=== PATIENT | female | born 1945 | race Caucasian/White ===

== ENCOUNTER 2017-09-10 12:41 | Emergency (ER) | payer MEDICARE, MEDICAID ==
[~2017-09-10] VITALS: Ht 147.3 cm; Wt 55.0 kg
[~2017-09-10 12:41] MED LIST: ACET-3068 PO; ATOR20TA PO; CLA10T PO; CYCL-394 PO; DOCU-148 PO; GABA-338 PO; IBUP-1984 PO; METF500T PO; OMEP-84 PO; ONDA4TAB6 PO; VALS160T2 PO
[2017-09-10 12:54] VITALS: BP 158/85
[2017-09-10] MEDS ORDERED: ketorolac trometh inj. 60 MG/2 ML VIAL IM STA (14:12)
[2017-09-10] MEDS ORDERED: CYCL-1 PO (14:15)
[2017-09-10] MEDS ORDERED: CYCL-394 PO (14:15)
[2017-09-10] MEDS ORDERED: IBUP-1984 PO (14:15)
== END 2017-09-10 14:40 | disposition home or self-care (01) ==
LOC: ER 12:41
DX: M54.5 Low back pain (principal); M25.561 Pain in right knee; G89.29 Other chronic pain; I10 Essential (primary) hypertension; E11.9 Type 2 diabetes mellitus without complications; Z79.84 Long term (current) use of oral hypoglycemic drugs; Z79.899 Other long term (current) drug therapy
CPT/HCPCS: 96372; 99284; J1885

== ENCOUNTER 2019-03-17 17:55 | Emergency (ER) | payer MEDICARE, MEDICAID ==
[~2019-03-17] VITALS: Ht 154.9 cm; Wt 50.0 kg
[~2019-03-17 17:55] MED LIST changes: +CYCL-1 PO
[2019-03-17 19:48] LABS: BASOPHILS % (AUTO) 0.4 % (0-1); EOSINOPHILS # (AUTO) 0.3 X10'3 (0-0.9); EOSINOPHILS % (AUTO) 4.7 % (0-6); HEMATOCRIT 40.5 % (35.0-45.0); HEMOGLOBIN 13.5 g/dl (12.0-16.0); LYMPHOCYTES % (AUTO) 31.9 % (21-51); MEAN CORPUSCULAR HGB CONC 33.3 g/dL (33.0-36.5); MEAN CORPUSCULAR VOLUME 93.2 FL (78-98); MEAN PLATELET VOLUME 7.6 FL (7.4-10.4); MONOCYTES # (AUTO) 0.7 X10'3 (0-0.9); MONOCYTES % (AUTO) 11.7 % (2-12); NEUTROPHILS # (AUTO) 3.3 X10'3 (1.8-7.7); NEUTROPHILS % (AUTO) 51.3 % (42-75); PLATELET COUNT 204 X10'3 (140-440); RED BLOOD COUNT 4.35 X10'6 (4.20-5.60); RED CELL DISTRIBUTION WIDTH 13.5 % (11.5-14.5); WHITE BLOOD COUNT 6.4 X10'3 (4.5-11.0)
[2019-03-17 20:01] LABS: ALANINE AMINOTRANSFERASE 24 U/L (12-78); ALBUMIN 3.6 G/DL (3.4-5.0); ALBUMIN/GLOBULIN RATIO 0.9 (1.1-1.5); ALKALINE PHOSPHATASE 71 IU/L (46-116); ANION GAP 6 (8-16); ASPARTATE AMINO TRANSFERASE 18 U/L (10-37); BILIRUBIN,TOTAL 0.6 MG/DL (0.1-1.0); BLOOD UREA NITROGEN 14 MG/DL (7-18); BUN/CREATININE RATIO 15.1 (6.6-38.0); CALCIUM 8.7 MG/DL (8.5-10.1); CHLORIDE 105 MMOL/L (99-107); CREATININE 0.93 MG/DL (0.40-0.90); GLUCOSE 113 MG/DL (70-104); POTASSIUM 3.8 MMOL/L (3.5-5.1); SODIUM 141 MMOL/L (135-145); TOTAL CARBON DIOXIDE 30.1 MMOL/L (24-32); TOTAL PROTEIN 7.5 G/DL (6.4-8.2); eGFR 59 ML/MIN
[2019-03-17 20:07] LABS: MAGNESIUM 1.9 MG/DL (1.5-2.4)
[2019-03-17 21:06] VITALS: BP 137/67
== END 2019-03-17 21:09 | disposition home or self-care (01) ==
LOC: ER 17:57
DX: R42 Dizziness and giddiness (principal); M25.511 Pain in right shoulder; R51 Headache; R20.0 Anesthesia of skin; I10 Essential (primary) hypertension; E11.9 Type 2 diabetes mellitus without complications; G89.29 Other chronic pain; Z98.890 Other specified postprocedural states; Z79.899 Other long term (current) drug therapy
CPT/HCPCS: 36415; 71046; 80053; 82948; 83735; 83880; 84484; 85025; 93005; 99284

== ENCOUNTER 2019-05-03 07:57 | Emergency (ER) | payer MEDICARE, MEDICAID ==
[~2019-05-03] VITALS: Ht 154.9 cm; Wt 60.0 kg
--- NOTE | 2019-05-03 08:23 | NUR ---
tamika ARIAS at bedside.
[2019-05-03] MEDS ORDERED: meclizine 12.5mg tablet PO ONE (08:40)
[2019-05-03] MEDS ORDERED: DICL100G15 TOP (09:31)
[2019-05-03] MEDS ORDERED: MECL-111 PO (09:48)
[2019-05-03 09:53] VITALS: BP 114/59
== END 2019-05-03 09:54 | disposition home or self-care (01) ==
LOC: ER 07:58
DX: R42 Dizziness and giddiness (principal); M25.511 Pain in right shoulder; R51 Headache; M79.604 Pain in right leg; I10 Essential (primary) hypertension; E11.9 Type 2 diabetes mellitus without complications; G89.29 Other chronic pain; Z98.890 Other specified postprocedural states; Z79.899 Other long term (current) drug therapy
CPT/HCPCS: 99283; J8597

== ENCOUNTER 2019-10-01 21:43 | Emergency (ER) | payer MEDICARE, MEDICAID ==
[~2019-10-01] VITALS: Ht 154.9 cm; Wt 59.1 kg
[~2019-10-01 21:43] MED LIST changes: +DICL100G15 TOP; +MECL-159 PO
[2019-10-01 21:45] VITALS: BP 168/80
[2019-10-01] MEDS ORDERED: CYCL-1 PO (22:14)
== END 2019-10-01 22:21 | disposition home or self-care (01) ==
LOC: ER 21:43
DX: M54.2 Cervicalgia (principal); M79.601 Pain in right arm; R20.0 Anesthesia of skin; I10 Essential (primary) hypertension; E11.9 Type 2 diabetes mellitus without complications; G89.29 Other chronic pain; Z98.890 Other specified postprocedural states; Z79.899 Other long term (current) drug therapy
CPT/HCPCS: 72040; 99283

== ENCOUNTER 2019-11-02 08:41 | Emergency (ER) | payer MEDICARE, MEDICAID ==
[~2019-11-02] VITALS: Ht 157.5 cm; Wt 52.3 kg
[2019-11-02] MEDS ORDERED: ondansetron/PF 4mg/2ml inj IV ONE (10:40)
[2019-11-02] MEDS ORDERED: normal saline 1000ML IV soln IVB ONE (10:40)
[2019-11-02] MEDS ORDERED: diazepam inj 5 MG/ML inj. IV ONE (10:40)
[2019-11-02] MEDS ORDERED: meclizine 12.5mg tablet PO ONE (10:40)
[2019-11-02 11:17] LABS: BASOPHILS % (AUTO) 0.2 % (0-1); EOSINOPHILS # (AUTO) 0.1 X10'3 (0-0.9); EOSINOPHILS % (AUTO) 0.9 % (0-6); HEMATOCRIT 43.5 % (35.0-45.0); HEMOGLOBIN 14.5 g/dl (12.0-16.0); LYMPHOCYTES # (AUTO) 1.2 X10'3 (1.1-4.8); LYMPHOCYTES % (AUTO) 18.3 % (21-51); MEAN CORPUSCULAR HEMOGLOBIN 30.8 PG (27.0-31.0); MEAN CORPUSCULAR HGB CONC 33.4 g/dL (33.0-36.5); MEAN CORPUSCULAR VOLUME 92.1 FL (78-98); MEAN PLATELET VOLUME 7.6 FL (7.4-10.4); MONOCYTES # (AUTO) 0.5 X10'3 (0-0.9); MONOCYTES % (AUTO) 7.5 % (2-12); NEUTROPHILS # (AUTO) 4.6 X10'3 (1.8-7.7); NEUTROPHILS % (AUTO) 73.1 % (42-75); PLATELET COUNT 200 X10'3 (140-440); RED BLOOD COUNT 4.72 X10'6 (4.20-5.60); RED CELL DISTRIBUTION WIDTH 13.5 % (11.5-14.5); WHITE BLOOD COUNT 6.3 X10'3 (4.5-11.0)
[2019-11-02 11:27] LABS: ALANINE AMINOTRANSFERASE 17 U/L (12-78); ALBUMIN 3.8 G/DL (3.4-5.0); ALKALINE PHOSPHATASE 73 IU/L (46-116); ANION GAP 7 (8-16); ASPARTATE AMINO TRANSFERASE 15 U/L (10-37); BILIRUBIN,TOTAL 0.6 MG/DL (0.1-1.0); BLOOD UREA NITROGEN 11 MG/DL (7-18); BUN/CREATININE RATIO 12.5 (6.6-38.0); CALCIUM 9.1 MG/DL (8.5-10.1); CHLORIDE 105 MMOL/L (99-107); CREATININE 0.88 MG/DL (0.40-0.90); GLUCOSE 143 MG/DL (70-104); POTASSIUM 3.9 MMOL/L (3.5-5.1); SODIUM 141 MMOL/L (135-145); TOTAL CARBON DIOXIDE 28.8 MMOL/L (24-32); TOTAL PROTEIN 7.8 G/DL (6.4-8.2); eGFR 63 ML/MIN
[2019-11-02] MEDS ORDERED: VAL5T PO (12:16)
[2019-11-02] MEDS ORDERED: MECL-159 PO (12:16)
[2019-11-02] MEDS ORDERED: ONDA4TAB6 PO (12:16)
[2019-11-02 12:28] VITALS: BP 155/75
== END 2019-11-02 12:25 | disposition home or self-care (01) ==
LOC: ER 08:41
DX: H81.10 Benign paroxysmal vertigo, unspecified ear (principal); R11.10 Vomiting, unspecified; I10 Essential (primary) hypertension; E11.9 Type 2 diabetes mellitus without complications; G89.29 Other chronic pain; Z98.890 Other specified postprocedural states; Z79.899 Other long term (current) drug therapy
CPT/HCPCS: 36415; 80053; 85025; 96374; 96375; 99284; J2405; J3360; J7030; J8597

== ENCOUNTER 2020-10-21 15:54 | Emergency (ER) | payer MEDICARE, MEDICAID | END 2020-10-21 19:03 | disposition left against medical advice (07) | LOC: ER 15:54 | DX: M54.9 Dorsalgia, unspecified (principal); Z53.21 Procedure and treatment not carried out due to patient leaving prior to being seen by health care provider ==

== ENCOUNTER 2022-08-26 04:32 | Emergency (ER) | payer MEDICARE, MEDICAID ==
[~2022-08-26] VITALS: Ht 154.9 cm; Wt 68.2 kg
[2022-08-26 05:29] LABS: PLATELET COUNT 208 X10'3 (140-440)
[2022-08-26 05:31] LABS: BASOPHILS % (AUTO) 0.4 % (0-1); EOSINOPHILS # (AUTO) 0.4 X10'3 (0-0.9); EOSINOPHILS % (AUTO) 4.1 % (0-6); HEMATOCRIT 40.6 % (35.0-45.0); HEMOGLOBIN 13.6 g/dl (12.0-16.0); LYMPHOCYTES # (AUTO) 2.5 X10'3 (1.1-4.8); LYMPHOCYTES % (AUTO) 25.7 % (21-51); MEAN CORPUSCULAR HEMOGLOBIN 30.2 PG (27.0-31.0); MEAN CORPUSCULAR HGB CONC 33.4 g/dL (33.0-36.5); MEAN CORPUSCULAR VOLUME 90.4 FL (78-98); MEAN PLATELET VOLUME 7.7 FL (7.4-10.4); MONOCYTES # (AUTO) 0.9 X10'3 (0-0.9); MONOCYTES % (AUTO) 9.6 % (2-12); NEUTROPHILS # (AUTO) 5.8 X10'3 (1.8-7.7); NEUTROPHILS % (AUTO) 60.2 % (42-75); RED BLOOD COUNT 4.49 X10'6 (4.20-5.60); WHITE BLOOD COUNT 9.6 X10'3 (4.5-11.0)
[2022-08-26 05:35] LABS: ALANINE AMINOTRANSFERASE 12 U/L (12-78); ALBUMIN 3.6 G/DL (3.4-5.0); ALBUMIN/GLOBULIN RATIO 0.8 (1.1-1.5); ALKALINE PHOSPHATASE 73 IU/L (46-116); ANION GAP 8 (8-16); ASPARTATE AMINO TRANSFERASE 16 U/L (10-37); BILIRUBIN,TOTAL 0.5 MG/DL (0.1-1.0); BLOOD UREA NITROGEN 12 MG/DL (7-18); CALCIUM 8.8 MG/DL (8.5-10.1); CHLORIDE 104 MMOL/L (99-107); CREATININE 0.75 MG/DL (0.40-0.90); GLUCOSE 148 MG/DL (70-104); POTASSIUM 3.9 MMOL/L (3.5-5.1); SODIUM 141 MMOL/L (135-145); TOTAL CARBON DIOXIDE 28.9 MMOL/L (24-32); eGFR 75 ML/MIN
[2022-08-26] MEDS ORDERED: acetaminophen 325mg tablet PO ONE (05:45)
[2022-08-26 05:57] VITALS: BP 152/64
== END 2022-08-26 06:03 | disposition home or self-care (01) ==
LOC: ER 04:33
DX: R07.89 Other chest pain (principal)
CPT/HCPCS: 36415; 71045; 80053; 83880; 84484; 85025; 93005; 99285

== ENCOUNTER 2023-06-01 11:41 | Outpatient (CLI) | payer MEDICARE, MEDICAID ==
[~2023-06-01 11:41] MED LIST changes: -MECL-159 PO; +MECL-302 PO
== END 2023-06-01 23:59 | disposition home or self-care (01) ==
LOC: VAS 11:41
PROVIDERS: ATTEND Physician Assistant
DX: R60.9 Edema, unspecified (principal)
CPT/HCPCS: 93971

== ENCOUNTER 2023-08-04 07:25 | Emergency (ER) | payer MEDICARE, MEDICAID ==
[~2023-08-04] VITALS: Ht 152.4 cm; Wt 54.5 kg
[2023-08-04 07:27] VITALS: BP 179/68; PULSE 74; RESP 18; TEMP 98.5; O2SAT 94
[2023-08-04 07:59] LABS: BILIRUBIN,URINE NEGATIVE (Neg); CLARITY,URINE CLEAR (Clear); COLOR,URINE YELLOW (Yellow); GLUCOSE, URINE 250 mg/dl (Neg); KETONES,URINE NEGATIVE (Neg); LEUKOCYTE ESTERASE ,URINE TRACE (Neg); NITRITES, URINE NEGATIVE (Neg); OCCULT BLOOD,URINE NEGATIVE (Neg); PH,URINE 6.5 (4.8-8.0); PROTEIN,URINE NEGATIVE (Neg); UROBILINOGEN,URINE 0.2 E.U/dL (0.2-1.0)
[2023-08-04 08:14] LABS: UA COLLECTION TYPE CLN CATCH MIDSTREAM
[2023-08-04 08:17] LABS: BACTERIA,URINE FEW /HPF (Neg); RBC,URINE 0-2 /HPF (0-2)
[2023-08-04 08:18] LABS: MUCUS STRANDS FEW /LPF (Neg); SQUAMOUS EPITHELIAL CELL,UR MODERATE /LPF (FEW); WBC CLUMPS,URINE FEW /HPF (NEGATIVE)
[2023-08-04] MEDS ORDERED: CEFU250T95 PO (08:32)
== END 2023-08-04 09:11 | disposition home or self-care (01) ==
LOC: ER 07:26
DX: N39.0 Urinary tract infection, site not specified (principal); I10 Essential (primary) hypertension; E11.9 Type 2 diabetes mellitus without complications; Z79.1 Long term (current) use of non-steroidal anti-inflammatories (NSAID); Z79.2 Long term (current) use of antibiotics; Z79.899 Other long term (current) drug therapy
CPT/HCPCS: 81001; 87088; 99283

== ENCOUNTER 2024-11-09 13:41 | Emergency (ER) | payer MEDICARE, MEDICAID ==
[~2024-11-09] VITALS: Ht 154.9 cm; Wt 60.0 kg
[~2024-11-09 13:41] MED LIST changes: -ACET-3068 PO; +AMLO10TA13 PO; +CEFU250T95 PO; -CLA10T PO; -CYCL-1 PO; -CYCL-394 PO; -DICL100G15 TOP; -DOCU-148 PO; -GABA-338 PO; +GABA-530 PO; -IBUP-1984 PO; +INSU100I31 SQ; +LOSA25TA41 PO; -METF500T PO; -OMEP-84 PO; -ONDA4TAB6 PO; -VALS160T2 PO
[2024-11-09 13:44] VITALS: BP 169/64; PULSE 68; RESP 16; TEMP 98.4; O2SAT 96
[2024-11-09 14:15] LABS: BASOPHILS # (AUTO) 0.1 X10'3 (0-0.2); BASOPHILS % (AUTO) 0.5 % (0-1); EOSINOPHILS % (AUTO) 0.4 % (0-6); HEMATOCRIT 38.4 % (35.0-45.0); LYMPHOCYTES % (AUTO) 19.4 % (21-51); MEAN CORPUSCULAR HEMOGLOBIN 30.9 PG (27.0-31.0); MEAN CORPUSCULAR HGB CONC 33.7 g/dL (33.0-36.5); MEAN CORPUSCULAR VOLUME 91.7 FL (78-98); MEAN PLATELET VOLUME 6.8 FL (7.4-10.4); MONOCYTES # (AUTO) 0.9 X10'3 (0-0.9); MONOCYTES % (AUTO) 8.3 % (2-12); NEUTROPHILS # (AUTO) 7.4 X10'3 (1.8-7.7); NEUTROPHILS % (AUTO) 71.4 % (42-75); PLATELET COUNT 248 X10'3 (140-440); RED BLOOD COUNT 4.19 X10'6 (4.20-5.60); RED CELL DISTRIBUTION WIDTH 15.6 % (11.5-14.5); WHITE BLOOD COUNT 10.4 X10'3 (4.5-11.0)
[2024-11-09 14:31] LABS: ALANINE AMINOTRANSFERASE 21 U/L (12-78); ALBUMIN 3.3 G/DL (3.4-5.0); ALBUMIN/GLOBULIN RATIO 0.8 (1.1-1.5); ALKALINE PHOSPHATASE 80 IU/L (46-116); ANION GAP 6 (8-16); ASPARTATE AMINO TRANSFERASE 14 U/L (10-37); BILIRUBIN,TOTAL 0.3 MG/DL (0.1-1.0); BLOOD UREA NITROGEN 15 MG/DL (7-18); BUN/CREATININE RATIO 16.9 (10.0-20.0); CALCIUM 8.8 MG/DL (8.5-10.1); CHLORIDE 109 MMOL/L (99-107); CREATININE 0.89 MG/DL (0.40-0.90); GLUCOSE 97 MG/DL (70-104); POTASSIUM 4.4 MMOL/L (3.5-5.1); SODIUM 146 MMOL/L (135-145); TOTAL CARBON DIOXIDE 31.3 MMOL/L (24-32); TOTAL PROTEIN 7.2 G/DL (6.4-8.2); eCRCL 38 ML/MIN; eGFR 61 ML/MIN
--- NOTE | 2024-11-09 15:34 | Physician Documentation ---
History of Present Illness ~ Chief Complaint: Vaginal pain Stated Complaint: MULTIPLE MED COMPLAINTS OK to notify your PCP?: Yes Primary Medical Doctor: Mary[facility] Source: patient Mode of Arrival: POV Exam Limitations: no limitations HPI 6-year-old female complaining of vaginal plain and states it feels like there is pressure and there is something falling out of her vaginal canal she has also been having some back pain and abdominal pain. She had a hysterectomy 2-3 years ago. Medication Reconciliation Allergies: Coded Allergies: No Known Allergies (Unverified , 11/09/24) Scheduled Amlodipine Besylate (Amlodipine Besylate), 1 TAB PO DAILY, (Reported) Atorvastatin Calcium* (Lipitor*), 20 MG PO HS, (Reported) Cefuroxime Axetil (Cefuroxime), 1 TAB PO Q12H, (Reported) Gabapentin (Gabapentin), 3 CAP PO BID, (Reported) Insulin Glargine,Hum.rec.anlog (Basaglar Kwikpen U-100), 14 UNITS SQ QPM Losartan Potassium (Losartan Potassium), 1 TAB PO DAILY, (Reported) Meclizine HCl (Meclizine HCl), 1 TAB PO Q12H, (Reported) Past Medical History Past Medical History: Hypertension, Diabetes, Chronic Pain, Chronic Back Pain Past Surgical History: abdominal surgery, Patient History: FH: diabetes mellitus Son Son Son Alcohol Use: None Drug Use: none Lives with: Family Lives In: Home Physical Exam Vital Signs: Temperature: 98.4, Source: Temporal, Heart Rate: 68, Respiratory Rate: 16, BP: 169/64, Pulse Oximetry: 96, Weight: 60.000 Oxygen Flow Rate: 0 Progress Results/Orders Results/Orders Vital Signs 11/09/24 13:44 Temp 98.4 Pulse 68 Resp 16 B/P (MAP) 169/64 Pulse Ox 96 O2 Flow Rate 0 Laboratory Tests Test 11/09/24 13:58 White Blood Count 10.4 Red Blood Count 4.19 L Hemoglobin 13.0 Hematocrit 38.4 Mean Corpuscular Volume 91.7 Mean Corpuscular Hemoglobin 30.9 Mean Corpuscular Hemoglobin Concent 33.7 Red Cell Distribution Width 15.6 H Platelet Count 248 Mean Platelet Volume 6.8 L Neutrophils (%) (Auto) 71.4 Lymphocytes (%) (Auto) 19.4 L Monocytes (%) (Auto) 8.3 Eosinophils (%) (Auto) 0.4 Basophils (%) (Auto) 0.5 Neutrophils # (Auto) 7.4 Lymphocytes # (Auto) 2.0 Monocytes # (Auto) 0.9 Eosinophils # (Auto) 0.0 Basophils # (Auto) 0.1 CBC Comment Sodium Level 146 H Potassium Level 4.4 Chloride Level 109 H Carbon Dioxide Level 31.3 Anion Gap 6 L Blood Urea Nitrogen 15 Creatinine 0.89 Estimated GFR/1.73 m2 61 BUN/Creatinine Ratio 16.9 Glucose Level 97 Calcium Level 8.8 Total Bilirubin 0.3 Aspartate Amino Transf (AST/SGOT) 14 Alanine Aminotransferase (ALT/SGPT) 21 Alkaline Phosphatase 80 Total Protein 7.2 Albumin 3.3 L Globulin 3.9 Albumin/Globulin Ratio 0.8 L Chemistry Comments Departure Referrals: NO PRIMARY CARE PROVIDER (PCP) Additional Comment Medical Screen Exam This patient recieved a medical screening examination. After reviewing the individual's medical complaints with presenting symptoms and performing an appropriate physical examination, it was determined that no emergency medical condition is present. This individual is also not a women having contractions. JUANITO ISAAC [facility] Nov 09, 2024 15:34
== END 2024-11-09 16:04 | disposition left against medical advice (07) ==
LOC: ER 13:41
DX: R10.2 Pelvic and perineal pain (principal); I10 Essential (primary) hypertension; E11.9 Type 2 diabetes mellitus without complications; Z79.899 Other long term (current) drug therapy; Z53.21 Procedure and treatment not carried out due to patient leaving prior to being seen by health care provider
CPT/HCPCS: 36415; 80053; 85025